=== PATIENT | female | born 1975 | race Caucasian/White ===

== ENCOUNTER 2017-09-18 19:16 | Emergency (ER) | payer OTHER ==
[~2017-09-18] VITALS: Ht 165.1 cm; Wt 72.6 kg
[2017-09-18 19:16] VITALS: BP 134/89
[2017-09-18] MEDS ORDERED: HYDROCODONE/APAP 5/325MG 1 EACH TABLET PO ONE (20:00)
[2017-09-18] MEDS ORDERED: ONDANSETRON 4 MG TAB.RAPDIS SL ONE (20:00)
[2017-09-18] MEDS ORDERED: ONDANSETRON 4 MG TAB.RAPDIS ONE (20:04)
[2017-09-18] MEDS ORDERED: HYDROCODONE/APAP 5/325MG 1 EACH TABLET ONE (20:04)
== END 2017-09-18 21:50 | disposition home or self-care (01) ==
LOC: ER 19:17
DX: M25.552 Pain in left hip (principal); M25.562 Pain in left knee; H54.62 Unqualified visual loss, left eye, normal vision right eye; V09.20XA Pedestrian injured in traffic accident involving unspecified motor vehicles, initial encounter; Y93.01 Activity, walking, marching and hiking; Y92.481 Parking lot as the place of occurrence of the external cause; Y99.8 Other external cause status
CPT/HCPCS: 72100-TC; 73502; 73564-TC; A4606; Q0162; Z7610